=== PATIENT | male | born 1945 | race Caucasian/White ===

== ENCOUNTER 2017-03-05 21:46 | Emergency (ER) | payer MEDICARE, OTHER ==
[2017-03-05 21:58] VITALS: BP 133/79
[2017-03-05] MEDS ORDERED: Lidocaine/EPINEPHrine/Tetracaine Soln 1 ML TOP ONE (22:23)
[2017-03-05] MEDS ORDERED: Lidocaine 1% 50 ML MDV INJECT ONE (22:23)
--- NOTE | 2017-03-05 22:38 | EDM.PDOC ---
ED HPI Trauma - General Chief Complaint: Lower Extremity Injury/Pain Stated Complaint: RIGHT LEG INJURY Time Seen by Provider: 03/05/17 22:05 Source: Reports: Patient History Limitations: Reports: No limitations - History of Present Illness INITIAL COMMENTS - FREE TEXT/NARRATIVE: The patient presents with pain and edema to the right leg and swelling at his left elbow. He was out walking today and kind of tripped on a rock and felt some pain in his right lower leg. He remembers now that he was walking earlier and hit his leg on a trailer hitch. He can walk on it but he has noted some ecchymosis to the anterior leg. He has no history of DVT or PE. His left elbow has edema to the left olecranon process. This come and goes and it has flared up in the past couple of days. He denies any injury. It is not really painful. Occurred When: this afternoon Occurred Where: home Method of Injury: other (Hit his leg on a trailer hitch) Pain/Injury Location: Reports: lower extremity, right (anterior lower leg) Consciousness: Reports: no loss of consciousness Associated Symptoms: Reports: no other symptoms Allergies/ADRs: Allergies [id number]-Hkn Reductase Inhibitor Allergy (Verified 03/05/17 21:58) Leg Cramps Sulfa (Sulfonamide Antibiotics) Allergy (Verified 03/05/17 21:58) Burning valdecoxib [From Bextra] Allergy (Verified 03/05/17 21:58) Burning Home Medications: Ambulatory Orders Aspirin 1 tab PO DAILY 03/05/17 [Confirmed 03/05/17] Lisinopril 1 tab PO DAILY 03/05/17 [Confirmed 03/05/17] Tamsulosin [Flomax] 1 tab PO DAILY 03/05/17 [Confirmed 03/05/17] Past Medical History Cardiovascular History: Reports: High cholesterol, Hypertension Respiratory History: Reports: Other (see below) Other Respiratory History: cpap at night - Past Surgical History HEENT Surgical History: Reports: Tonsillectomy GI Surgical History: Reports: Appendectomy Social & Family History - Tobacco Use Smoking Status *Q: Never Smoker - Caffeine Use Caffeine Use: Reports: Coffee - Recreational Drug Use Recreational Drug Use: No Review of Systems - Review of Systems Review Of Systems: See Below Constitutional: Reports: no symptoms Eyes: Reports: no symptoms Ears: Reports: no symptoms Nose: Reports: no symptoms Mouth/Throat: Reports: no symptoms Respiratory: Reports: No Symptoms Cardiovascular: Reports: no symptoms GI/Abdominal: Reports: No symptoms Genitourinary: Reports: no symptoms Musculoskeletal: Reports: other (Right lower leg pain and left elbow edema) Trauma Exam - Physical Exam Exam: See Below Exam Limited By: No limitations General Appearance: Reports: alert, no apparent distress Head: Reports: atraumatic, normocephalic Ears: Reports: normal external exam Nose: Reports: normal inspection Neck: Reports: non-tender, normal alignment, normal inspection Respiratory Exam: Reports: no respiratory distress, lungs clear, normal breath sounds Cardiovascular: Reports: regular rate, rhythm, no edema, no murmur GI/Abdominal: Reports: soft, non tender, no organomegaly Extremities: Reports: other (Mild edema to the anterior lower right leg with some ecchymosis. Mild pain upon palpaiton. Moderate edema to the left olecranon process. No erythema and no warmth.) Course - Vital Signs Last Recorded V/S: Last Vital Signs Temp 97 F 03/05/17 21:52 Pulse 76 03/05/17 21:52 Resp 16 03/05/17 21:52 BP 133/79 03/05/17 21:52 Pulse Ox 91 L 03/05/17 21:52 - Orders/Labs/Meds Orders: Active Orders 24 hr Category Date Time Status Tibia Fibula Rt [CR] Stat Exams 03/05/17 22:14 Ordered CRYSTALS,BODY FLUID [BF] Stat Lab 03/05/17 22:56 Results CULTURE BODY FLUID + SMEAR [RM] Stat Lab 03/05/17 22:56 Received SYNOVIAL FLUID ANALYSIS [BF] Stat Lab 03/05/17 22:56 Results Labs: Laboratory Tests 03/05/17 Range/Units 22:56 Synovial Color Yellow Synovial Appearance Cloudy (CLEAR) Synovial Volume 8 Meds: Medications Discontinued Medications Generic Name Dose Route Start Last Admin Trade Name Conorq PRN Reason Stop Dose Admin Lidocaine HCl 50 ml 03/05/17 22:23 03/05/17 22:29 Xylocaine 1% INJECT 03/05/17 22:24 50 ml ONETIME ONE Administration Lidocaine/Tetracaine 1 ml 03/05/17 22:23 03/05/17 22:28 Let Soln TOP 03/05/17 22:24 1 ml ONETIME ONE Administration - Re-Assessments/Exams Free Text/Narrative Re-Assessment/Exam: 03/05/17 23:17 I had my nurse put some LET on his elbow and then I injected more lidocaine after cleaning his left elbow with chlor prep. I then aspirated about 8mls of yellow clear fluid. He tolerated the procedure well and there were no complications. I sent the fluid off for gram stain, crystals and culture. His x-ray looks good. I will discharge him home. Departure - Departure Time of Disposition: 23:20 Disposition: Home, Self-Care 01 Condition: good Clinical Impression: Olecranon bursitis, left elbow Contusion of right leg Qualifiers: Encounter type: initial encounter Qualified Code(s): S80.11XA - Contusion of right lower leg, initial encounter Referrals: Igor Bonilla DO [Physician] - 1 Week Forms: ED Department Discharge Additional Instructions: Take tylenol or motrin for pain. Put some ice on your leg a couple times per day. Elevate your leg above your heart when resting. That will help reduce the swelling. The results of the fluid may take a few days. I will call the results. Please return if you are worse such as more swelling or pain of you leg or chest pain or shortness of breath. - My Orders Last 24 Hours: My Active Orders 03/05/17 22:14 Tibia Fibula Rt [CR] Stat 03/05/17 22:56 CRYSTALS,BODY FLUID [BF] Stat CULTURE BODY FLUID + SMEAR [RM] Stat SYNOVIAL FLUID ANALYSIS [BF] Stat - Assessment/Plan Last 24 Hours: My Active Orders 03/05/17 22:14 Tibia Fibula Rt [CR] Stat 03/05/17 22:56 CRYSTALS,BODY FLUID [BF] Stat CULTURE BODY FLUID + SMEAR [RM] Stat SYNOVIAL FLUID ANALYSIS [BF] Stat
--- NOTE | 2017-03-06 11:45 | CR ---
Right tibia and fibula: Two views of the right tibia and fibula were obtained. Slight deformity of the distal tibia and fibula are seen compatible with old healed fractures. Bony structures are somewhat osteopenic. Soft tissue calcification seen presumably vascular. No acute fracture or other abnormality is seen. Impression: 1. Incidental findings as noted above. Nothing acute is appreciated on two-view right tibia and fibula study. Diagnostic code #2
== END 2017-03-05 23:26 | disposition home or self-care (01) ==
LOC: JD.ED 21:46
PROC: 3E0U3BZ Introduction of Anesthetic Agent into Joints, Percutaneous Approach (ICD-10-PCS; principal; 2017-03-05)
DX: S80.11XA Contusion of right lower leg, initial encounter (principal); M70.22 Olecranon bursitis, left elbow; E78.00 Pure hypercholesterolemia, unspecified; I10 Essential (primary) hypertension; Z98.890 Other specified postprocedural states; Z90.49 Acquired absence of other specified parts of digestive tract; Z88.2 Allergy status to sulfonamides; Z88.8 Allergy status to other drugs, medicaments and biological substances; W22.8XXA Striking against or struck by other objects, initial encounter
CPT/HCPCS: 20605; 73590; 87070; 87205; 89060; 99284; A9270; 20610; 99282

== ENCOUNTER 2017-09-02 19:34 | Emergency (ER) | payer MEDICARE, OTHER ==
[2017-09-02 19:47] VITALS: BP 171/77
[2017-09-02] MEDS ORDERED: Sodium Chloride 0.9% 1,000 ML IV SCH (20:15)
[2017-09-02] MEDS ORDERED: Iopamidol 755 Mg/ML 100 ML Bottle IVPUSH ONE (21:34)
[2017-09-02] MEDS ORDERED: Diatrizoate Meglumine/Diatrizoate Sodium 37% 120 ML Bottle PO ONE (21:34)
[2017-09-02] MEDS ORDERED: Iopamidol 755 MG/ML 50 ML Bottle IVPUSH ONE (21:34)
--- NOTE | 2017-09-02 21:55 | EDM.PDOC ---
ED HPI GENERAL MEDICAL PROBLEM - General Chief Complaint: Abdominal Pain Stated Complaint: ABDOMINAL PAIN Time Seen by Provider: 09/02/17 19:56 Source of Information: Reports: Patient, Family (), RN Notes Reviewed History Limitations: Reports: No Limitations - History of Present Illness INITIAL COMMENTS - FREE TEXT/NARRATIVE: The patient states that he developed lower abdominal pain this past 2016, and that it has been waxing and waning since. It is crampy in character, and occasionally stabbing. He states that he will temporarily feel better after having a bowel movement, or if he is supine. He is worse with ambulation, although jiggling the bed did not worsen his pain. He denies recent fever, nausea, vomiting, or constipation. He reports loose, non-bloody bowel movements , and he states that he had no appetite tonight. He denies having dysuria, but reports both urinary frequency and urgency, which is normal for him, due to BPH. No prior similar symptoms. The patient reports that he had a colonoscopy in 2012 or 2013, which was reported to him as normal. He does not recall being told that he has diverticulosis. The patient's PCP is Dr. Danielito Olivares, in [place]. Dr. Olivares has not been notified of this issue. Bilateral Lower Abdomen Pain Score (Numeric/FACES): 8 - Related Data Allergies Allergy/AdvReac Type Severity Reaction Status Date / Time Gmroyrl-Uld-Qrp Reductase Allergy Leg Cramps Verified 09/02/17 19:42 Inhibitor Sulfa (Sulfonamide Allergy Burning Verified 09/02/17 19:42 Antibiotics) valdecoxib [From Bextra] Allergy Burning Verified 09/02/17 19:42 Home Meds: Home Meds Aspirin 325 mg PO DAILY 03/05/17 [History] Lisinopril 10 mg PO DAILY 03/05/17 [History] Tamsulosin [Flomax] 0.4 mg PO DAILY 03/05/17 [History] Fenofibrate [Fenofibrate] 160 mg PO DAILY 09/02/17 [History] metroNIDAZOLE [Flagyl] 500 mg PO Q8H #30 tablet 09/02/17 [Rx] Levofloxacin [Levaquin] 750 mg PO QPM #10 tablet 09/03/17 [Rx] Past Medical History HEENT History: Reports: Impaired Vision Other HEENT History: wears glasses Cardiovascular History: Reports: High Cholesterol, Hypertension Respiratory History: Reports: Sleep Apnea (nightly CPAP) Musculoskeletal History: Reports: Fracture (left forearm x 2) Endocrine/Metabolic History: Reports: Obesity/BMI 30+ - Past Surgical History HEENT Surgical History: Reports: Tonsillectomy (1979) GI Surgical History: Reports: Appendectomy (1960), Colonoscopy (2012 or 2013) Musculoskeletal Surgical History: Reports: ORIF (left forearm x 2) Social & Family History - Tobacco Use Smoking Status *Q: Former Smoker Years of Tobacco use: 14 Packs/Tins Daily: 1 Month Tobacco Last Used: Quit around 1976 - Caffeine Use Caffeine Use: Reports: Coffee - Alcohol Use Alcohol Use History: Yes Alcohol Use Frequency: Rarely - Recreational Drug Use Recreational Drug Use: No - Living Situation & Occupation Living situation: Reports: , with Spouse Occupation: Employed ([employer]) ED ROS GENERAL - Review of Systems Review Of Systems: See Below Constitutional: Reports: No Symptoms HEENT: Reports: No Symptoms Respiratory: Reports: No Symptoms Cardiovascular: Reports: No Symptoms Endocrine: Reports: No Symptoms GI/Abdominal: Reports: No Symptoms : Reports: No Symptoms Musculoskeletal: Reports: No Symptoms Skin: Reports: No Symptoms Neurological: Reports: No Symptoms Psychiatric: Reports: No Symptoms Hematologic/Lymphatic: Reports: No Symptoms Immunologic: Reports: No Symptoms ED EXAM, GI/ABD - Physical Exam Exam: See Below Exam Limited By: No Limitations General Appearance: Alert, WD/WN, No Apparent Distress Eyes: Bilateral: Normal Appearance, EOMI Ears: Normal External Exam, Hearing Grossly Normal Nose: Normal Inspection, No Blood Throat/Mouth: Normal Inspection, Normal Lips, Normal Voice, No Airway Compromise Head: Atraumatic, Normocephalic Neck: Normal Inspection, Full Range of Motion Respiratory/Chest: No Respiratory Distress, Lungs Clear, Normal Breath Sounds, No Accessory Muscle Use Cardiovascular: Normal Peripheral Pulses, Regular Rate, Rhythm, No Gallop, No JVD, No Murmur, No Rub GI/Abdominal Exam: Soft, No Organomegaly, No Distention, No Abnormal Bruit, No Mass, Tender (Exquisite to the left lower quadrant only. Essentially nontender elsewhere.), Abnormal Bowel Sounds (decreased). No: Guarding, Rebound (Male) Exam: Deferred Rectal (Males) Exam: Deferred Back Exam: Normal Inspection, Full Range of Motion. No: CVA Tenderness (L), CVA Tenderness (R) Extremities: Normal Inspection, Normal Range of Motion, No Pedal Edema, Normal Capillary Refill Neurological: Alert, Oriented, Normal Cognition, No Motor/Sensory Deficits Psychiatric: Normal Affect Skin Exam: Warm, Dry, Intact, Normal Color, No Rash Course - Vital Signs Last Recorded V/S: Last Vital Signs Temp 36.7 C 09/02/17 19:44 Pulse 83 09/02/17 19:44 Resp 18 09/02/17 19:44 BP 171/77 H 09/02/17 19:44 Pulse Ox 96 09/02/17 19:44 - Orders/Labs/Meds Orders: Active Orders 24 hr Category Date Time Status Abdomen Pelvis w Cont [CT] Stat Exams 09/02/17 20:11 Taken Sodium Chloride 0.9% [Normal Saline] 1,000 ml Med 09/02/17 20:15 Active IV ASDIRECTED Medication Orders Sodium Chloride (Normal Saline) 1,000 mls @ 150 mls/hr IV ASDIRECTED MARTINEZ Last Admin: 09/02/17 20:39 Dose: 150 mls/hr Labs: Laboratory Tests 09/02/17 09/02/17 09/02/17 Range/Units 20:15 20:15 20:40 WBC 10.11 H (4.23-9.07) K/mm3 RBC 4.86 (4.63-6.08) M/mm3 Hgb 14.2 (13.7-17.5) gm/L Hct 41.7 (40.1-51.0) % MCV 85.8 (79.0-92.2) fl MCH 29.2 (25.7-32.2) pg MCHC 34.1 (32.2-35.5) g/dl RDW Std Deviation 41.7 (35.1-43.9) fL Plt Count 299 (163-337) K/mm3 MPV 9.5 (9.4-12.3) fl Neutrophils % (Manual) 86 H (40-60) % Band Neutrophils % 0 (0-10) % Lymphocytes % (Manual) 12 L (20-40) % Atypical Lymphs % 0 % Monocytes % (Manual) 2 (2-10) % Eosinophils % (Manual) 0 L (0.8-7.0) % Basophils % (Manual) 0 L (0.2-1.2) Platelet Estimate Adequate RBC Morph Comment Normal Sodium 136 (136-145) mEq/L Potassium 4.3 (3.5-5.1) mEq/L Chloride 102 (98-107) mEq/L Carbon Dioxide 23 (21-32) mEq/L Anion Gap 15.3 H (5-15) BUN 24 H (7-18) mg/dL Creatinine 1.3 (0.7-1.3) mg/dL Est Cr Clr Drug Dosing 52.12 mL/min Estimated GFR (MDRD) 54 (>60) mL/min BUN/Creatinine Ratio 18.5 H (14-18) Glucose 107 (83-115) mg/dL Calcium 8.7 (8.5-10.1) mg/dL Total Bilirubin 0.4 (0.2-1.0) mg/dL AST 20 (15-37) U/L ALT 39 (16-63) U/L Alkaline Phosphatase 56 (46-116) U/L Total Protein 7.5 (6.4-8.2) g/dl Albumin 3.5 (3.4-5.0) g/dl Globulin 4.0 gm/dL Albumin/Globulin Ratio 0.9 L (1-2) Lipase 188 (73-393) U/L Urine Color Yellow (Yellow) Urine Appearance Clear (Clear) Urine pH 6.0 (5.0-8.0) Ur Specific [place] 1.025 (1.005-1.030) Urine Protein Negative (Negative) Urine Glucose (UA) Negative (Negative) Urine Ketones Negative (Negative) Urine Occult Blood Trace-lysed H (Negative) Urine Nitrite Negative (Negative) Urine Bilirubin Negative (Negative) Urine Urobilinogen 0.2 (0.2-1.0) Ur Leukocyte Esterase Negative (Negative) Urine RBC 0-5 (0-5) /hpf Urine WBC 0-5 (0-5) /hpf Ur Epithelial Cells Not seen (0-5) /hpf Urine Bacteria Few (FEW) /hpf Urine Mucus Few (FEW) /hpf Meds: Medications Generic Name Dose Route Start Last Admin Trade Name Freq PRN Reason Stop Dose Admin Sodium Chloride 1,000 mls @ 150 mls/hr 09/02/17 20:15 09/02/17 20:39 Normal Saline IV 150 mls/hr ASDIRECTED MARTINEZ Administration Discontinued Medications Generic Name Dose Route Start Last Admin Trade Name Varghese PRN Reason Stop Dose Admin Diatrizoate Meglum/Diatrizoate Sod 90 ml 09/02/17 21:34 09/02/17 22:00 Gastrografin 37% PO 09/02/17 21:35 90 ml ONETIME ONE Administration Iopamidol 25 ml 09/02/17 21:34 09/02/17 22:00 Isovue-370 (76%) IVPUSH 09/02/17 21:35 25 ml ONETIME ONE Administration Iopamidol 100 ml 09/02/17 21:34 09/02/17 21:59 Isovue-370 (76%) IVPUSH 09/02/17 21:35 100 ml ONETIME ONE Administration - Re-Assessments/Exams Free Text/Narrative Re-Assessment/Exam: 09/02/17 23:45 CT of the abdomen and pelvis with oral and IV contrast is read by [facility] as: Acute left-sided sigmoid diverticulitis. No evidence for free air or abscess or bowel obstruction. Large right renal cyst measuring 8 cm. Enlarged prostate gland with mildly distended bladder The CT scan reading does not indicate the presence of an abscess. Under the circumstances, the patient would qualify for outpatient treatment. I will start the patient on oral Levaquin and Flagyl. 09/02/17 23:56 Test results discussed with the patient and his . The patient would prefer an outpatient treatment. E-prescriptions can be given for Levaquin and Flagyl, however, the patient's pharmacy will not be open by 08:00, therefore he will be discharged home with a single dose of Flagyl. The patient declined an offer for both pain medication and antinausea medicine. Departure - Departure Time of Disposition: 23:57 Disposition: Home, Self-Care 01 Condition: Fair Clinical Impression: Acute diverticulitis - Discharge Information Referrals: Danielito Cantu MD [Primary Care Provider] - Forms: ED Department Discharge Additional Instructions: You were seen in the emergency room for lower abdominal pain. Workup in the ER included blood work, a urinalysis, and a CT scan of your abdomen and pelvis. Your workup shows that you are suffering from acute diverticulitis, an infection of your lower colon. You have been started on the antibiotics Levaquin and Flagyl. Take one tablet of Levaquin each evening, starting tomorrow, Friday, 2016. Take one tablet of Flagyl every 8 hours, starting at 8:00 tomorrow morning, 09/03/2017. Stay well hydrated. Until you are all better, you should eat a LOW RESIDUE (low fiber) diet. Once you are all better, we recommend a high-fiber diet. Contrary to popular believe, you may then eat all the seeds, nuts, and popcorn you like, but not until you're all better. We recommend that you notify the office of your PCP, Dr. Olivares, of your ER visit and of your diagnosis and treatment. If any other problems, please do not hesitate to return to the ER. - My Orders Last 24 Hours: My Active Orders 09/02/17 20:11 Abdomen Pelvis w Cont [CT] Stat 09/02/17 20:15 Sodium Chloride 0.9% [Normal Saline] 1,000 ml IV ASDIRECTED - Assessment/Plan Last 24 Hours: My Active Orders 09/02/17 20:11 Abdomen Pelvis w Cont [CT] Stat 09/02/17 20:15 Sodium Chloride 0.9% [Normal Saline] 1,000 ml IV ASDIRECTED
[2017-09-02] MEDS ORDERED: Levofloxacin 750 MG Tab PO STA (23:49)
[2017-09-02] MEDS ORDERED: metroNIDAZOLE 500 MG Tab PO ONE (23:49)
[2017-09-02] MEDS ORDERED: metroNIDAZOLE 500 MG Tab PO STA (23:58)
--- NOTE | 2017-09-03 08:22 | CT ---
CT abdomen and pelvis Technique: Multiple axial sections were obtained from above the dome of the diaphragm inferiorly through the pubic symphysis. Intravenous and oral contrast was utilized. Comparison: No prior abdominal imaging. Findings: Mild inflammatory change is seen around several diverticuli within the sigmoid colon compatible with mild diverticulitis. There is fairly prominent diverticuli within the sigmoid colon. Lesser diverticuli are seen within the descending colon. Visualized lung bases show nothing acute. Liver shows no focal parenchymal abnormality but contains mild fatty infiltration. Small amount of contrast reflux into the distal esophagus is seen. Spleen appears within normal limits. Cyst noted within the right kidney measuring 7.7 cm. Small cyst is noted within the left kidney measuring 1.1 cm. Adrenal glands show no nodule. Pancreas is within normal limits. Gallbladder shows no calcified gallstones. Aorta and iliac vessels shows atherosclerotic calcification with no aneurysm. No retroperitoneal adenopathy or mesenteric abnormalities are seen. Prostate gland mildly enlarged. No pelvic mass or adenopathy is seen. Bone window settings were reviewed which show scattered degenerative change. Delayed images show contrast within the distal ureters and bladder. Impression: 1. Sigmoid diverticulitis. No abscess is seen at this time. 2. Other incidental findings. Diagnostic code #3 Agree with preliminary report issued by [facility] ([facility] preliminary report dictated on 09/02/17, 11:27 PM Central Time)
== END 2017-09-03 00:15 | disposition home or self-care (01) ==
LOC: JD.ED 19:34
DX: K57.92 Diverticulitis of intestine, part unspecified, without perforation or abscess without bleeding (principal); E78.00 Pure hypercholesterolemia, unspecified; I10 Essential (primary) hypertension; E66.9 Obesity, unspecified; Z88.8 Allergy status to other drugs, medicaments and biological substances; Z88.2 Allergy status to sulfonamides; Z79.899 Other long term (current) drug therapy; Z87.891 Personal history of nicotine dependence
CPT/HCPCS: 36415; 74177; 80053; 81001; 83690; 85025; 96360; 96361; 99284; A9270; J7040; Q9963; Q9967

== ENCOUNTER 2021-05-10 20:42 | Emergency (ER) | payer MEDICARE, OTHER ==
[2021-05-10 21:04] VITALS: BP 184/98; PULSE 76
--- NOTE | 2021-05-10 21:08 | EDM.PDOC ---
ED HPI GENERAL MEDICAL PROBLEM - General Chief Complaint: Laceration Stated Complaint: hand lac Time Seen by Provider: 05/10/21 21:01 Source of Information: Reports: Patient History Limitations: Reports: No Limitations - History of Present Illness INITIAL COMMENTS - FREE TEXT/NARRATIVE: 75-year-old male presents the emergency department after he sustained numerous cat bites and scratches after trying to break up a fight between 2 cats about 3 hours ago. Patient states that the cats were fighting and he tried to grab one of them when the one cat turned around and bit him and scratched him on his left hand and right leg. Patient has 1 large laceration noted to the dorsal aspect of his left hand. He has 2 other small lacerations on the dorsal aspect of his left hand. Various puncture sites noted to his left hand and a puncture site noted to his right lower extremity. 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 - Related Data Allergies Allergy/AdvReac Type Severity Reaction Status Date / Time Sulfa (Sulfonamide Allergy Severe Burning Verified 05/10/21 21:04 Antibiotics) valdecoxib [From Bextra] Allergy Severe Burning Verified 05/10/21 21:04 Otgaomy-Vrs-Jfs Reductase AdvReac Severe Leg Cramps Verified 05/10/21 21:04 Inhibitor Home Meds: Home Meds Aspirin 325 mg PO DAILY 03/05/17 [History] Lisinopril 10 mg PO DAILY 03/05/17 [History] Tamsulosin [Flomax] 0.4 mg PO DAILY 03/05/17 [History] Fenofibrate 160 mg PO DAILY 09/02/17 [History] Amoxicillin/Potassium Clav [Augmentin 875-125 Tablet] 1 each PO BID #19 tablet 05/10/21 [Rx] Past Medical History HEENT History: Reports: Impaired Vision Other HEENT History: wears glasses Cardiovascular History: Reports: High Cholesterol, Hypertension Respiratory History: Reports: Sleep Apnea Musculoskeletal History: Reports: Fracture Endocrine/Metabolic History: Reports: Obesity/BMI 30+ - Past Surgical History HEENT Surgical History: Reports: Tonsillectomy GI Surgical History: Reports: Appendectomy, Colonoscopy Musculoskeletal Surgical History: Reports: ORIF Social & Family History - Tobacco Use Tobacco Use Status *Q: Never Tobacco User - Caffeine Use Caffeine Use: Reports: Coffee - Recreational Drug Use Recreational Drug Use: No - Living Situation & Occupation Living situation: Reports: , with Spouse Occupation: Employed ([employer]) ED ROS GENERAL - Review of Systems Review Of Systems: Comprehensive ROS is negative, except as noted in HPI. ED EXAM, SKIN/RASH Exam: See Below Exam Limited By: No Limitations General Appearance: Alert, WD/WN, No Apparent Distress Ears: Normal External Exam, Hearing Grossly Normal Nose: Normal Inspection Throat/Mouth: Normal Inspection, Normal Lips, Normal Voice, No Airway Compromise Head: Atraumatic Neck: Normal Inspection, Supple Respiratory/Chest: No Respiratory Distress, No Accessory Muscle Use Cardiovascular: Normal Peripheral Pulses, Regular Rate, Rhythm GI/Abdominal: No Distention (Male) Exam: Deferred Rectal (Males) Exam: Deferred Back Exam: Normal Inspection Extremities: Other (3 areas of laceration noted to the dorsal aspect of the left hand. Puncture wounds noted to the left hand and right lower extremity.) Neurological: Alert, Oriented, Normal Cognition Psychiatric: Normal Affect, Normal Mood Skin: Warm, Dry, Normal Color, No Rash, Wound/Incision (3 areas of laceration noted to the dorsal aspect of the left hand. Puncture wounds noted to the left hand and right lower extremity.) Location, Skin: Upper Extremity, Left Lymphatic: No Adenopathy ED SKIN PROCEDURES - Laceration/Wound Repair Left Hand Appearance: Superficial Distal NVT: Neuro & Vascular Intact Anesthetic Type: Local Local Anesthesia - Lidocaine (Xylocaine): 1% Plain Local Anesthetic Volume: Other (6) Closed with: Sutures Lac/Wound length In cm: 5 Suture Size: 4-0 # of Sutures: 11 Suture Type: Nylon, Interrupted Left Other Appearance: Superficial Distal NVT: Neuro & Vascular Intact Anesthetic Type: Local Local Anesthesia - Lidocaine (Xylocaine): 1% Plain Local Anesthetic Volume: 2cc Closed with: Sutures Lac/Wound length In cm: 2 Suture Size: 4-0 # of Sutures: 5 Suture Type: Nylon, Interrupted Course - Vital Signs Text/Narrative:: Upon assessment the patient has a fairly large laceration noted to the dorsal aspect of his left hand. He also has 2 smaller lacerations noted to the dorsal aspect of his left hand. Numerous puncture wounds on his left hand and right lower extremity. Because the patient was bit by the cat he will be given Augmentin 875/125 x 1 dose orally now and then I will send a prescription for antibiotics to his pharmacy. Patient will need to have 2 of the lacerations to the dorsal aspect of his left hand repaired. I have ordered lidocaine and then will suture the wounds. Last Recorded V/S: Last Vital Signs Temp 97.6 F 05/10/21 21:01 Pulse 76 05/10/21 21:01 Resp 18 05/10/21 21:01 BP 184/98 H 05/10/21 21:01 Pulse Ox 93 L 05/10/21 21:01 - Orders/Labs/Meds Meds: Medications Discontinued Medications Generic Name Dose Route Start Last Admin Trade Name Varghese PRN Reason Stop Dose Admin Amoxicillin/Clavulanate Potassium 1 tab 05/10/21 21:19 05/10/21 21:30 Amoxicillin/Clavulanate K 875-125 Mg Tab PO 05/10/21 21:20 1 tab ONETIME ONE Administration Lidocaine HCl 10 ml 05/10/21 21:18 05/10/21 21:30 Lidocaine 1% 10 Ml Mdv INJECT 05/10/21 21:19 10 ml ONETIME ONE Administration Departure - Departure Time of Disposition: 22:33 Disposition: Home, Self-Care 01 Condition: Good Clinical Impression: Cat bite of hand Qualifiers: Encounter type: initial encounter Laterality: left Qualified Code(s): S61.452A - Open bite of left hand, initial encounter; W55.01XA - Bitten by cat, initial encounter - Discharge Information Prescriptions: Amoxicillin/Potassium Clav [Augmentin 875-125 Tablet] 1 each PO BID #19 tablet Instructions: Animal Bite, Adult, [id number], Laceration Care, Adult, [id number], Sutures, [place], or Adhesive Wound Closure, [id number] Referrals: PCP,Not In Area [Primary Care Provider] - Forms: ED Department Discharge Additional Instructions: You were seen in the emergency department today after being bitten and scratched by a cat. You were given an antibiotic called Augmentin while in the emergency department. I have sent prescription for this antibiotic to your pharmacy. You will need to take this twice daily until gone. Also recommend that you take a probiotic while taking this medication as it can cause diarrhea. Your lacerations were repaired with sutures. These can come out in 7 to 10 days. Keep the dressing on for 24 hours. You may may remove the dressing then and wash your hand twice daily with mild soap and water. Then pat the wound dry and place a thin film of bacitracin ointment over the top. May apply a bandage or dressing over the wound to keep it clean. Watch for signs and symptoms such as increased redness, warmth, swelling or pus. Sepsis Event Note (ED) - Evaluation Sepsis Screening Result: No Definite Risk - Focused Exam Vital Signs: Vital Signs Temp Pulse Resp BP Pulse Ox 05/10/21 21:01 97.6 F 76 18 184/98 H 93 L
[2021-05-10] MEDS ORDERED: Lidocaine 1% 10 ML MDV INJECT ONE (21:18)
[2021-05-10] MEDS ORDERED: Amoxicillin/Clavulanate K 875-125 MG Tab PO ONE (21:19)
== END 2021-05-10 22:45 | disposition home or self-care (01) ==
LOC: JD.ED 20:42
DX: S61.452A Open bite of left hand, initial encounter (principal); E78.00 Pure hypercholesterolemia, unspecified; I10 Essential (primary) hypertension; E66.9 Obesity, unspecified; Z68.30 Body mass index [BMI] 30.0-30.9, adult; Z79.82 Long term (current) use of aspirin; Z79.899 Other long term (current) drug therapy; Z88.2 Allergy status to sulfonamides; Z88.8 Allergy status to other drugs, medicaments and biological substances; W55.01XA Bitten by cat, initial encounter
CPT/HCPCS: 12002; 99283; A9270

== ENCOUNTER 2022-12-08 15:54 | Emergency (ER) | payer MEDICARE, OTHER ==
[2022-12-08] MEDS ORDERED: Sodium Chloride 0.9% 10 ML Syringe FLUSH PRN (16:58)
[2022-12-08] MEDS ORDERED: HYDROmorphone 0.5 MG/0.5 ML Syringe IVPUSH ONE (16:59)
[2022-12-08] MEDS ORDERED: Sodium Chloride 0.9% 1,000 ML IV SCH (17:00)
[2022-12-08] MEDS ORDERED: Iopamidol 612 MG/ML 100 ML Bottle IVPUSH ONE (17:49)
[2022-12-08] MEDS ORDERED: Sodium Chloride 0.9% 10 ML Syringe FLUSH ONE (17:49)
[2022-12-08] MEDS ORDERED: Iopamidol 612 MG/ML 50 ML SDV IVPUSH ONE (17:49)
[2022-12-08 19:06] VITALS: BP 168/91; PULSE 63
== END 2022-12-08 19:06 | disposition home or self-care (01) ==
LOC: JD.ED 15:54
DX: K40.90 Unilateral inguinal hernia, without obstruction or gangrene, not specified as recurrent (principal); E78.00 Pure hypercholesterolemia, unspecified; I10 Essential (primary) hypertension; E66.9 Obesity, unspecified; Z68.33 Body mass index [BMI] 33.0-33.9, adult; Z88.2 Allergy status to sulfonamides; Z88.8 Allergy status to other drugs, medicaments and biological substances; Z79.82 Long term (current) use of aspirin; Z79.899 Other long term (current) drug therapy
CPT/HCPCS: 36415; 74177; 80053; 81001; 83690; 85025; 96360; 96361; 99284; J3490; J7030; Q9967